=== PATIENT | male | born 1965 | race African-American/Black ===

== ENCOUNTER 2017-02-17 22:57 | Emergency (ER) | payer MEDICARE, MEDICAID ==
[~2017-02-17] VITALS: Ht 188 cm; Wt 109.0 kg
[2017-02-17] MEDS ORDERED: IPRATROPIUM BROMIDE (0.02%) 0.5MG/2.5ML NEB HHN STA (23:22)
[2017-02-17] MEDS ORDERED: PREDNISONE 20MG TABLET PO STA (23:22)
[2017-02-17] MEDS ORDERED: ALBUTEROL (0.083%) 2.5MG/3ML NEB HHN STA (23:22)
[2017-02-18 00:40] VITALS: BP 126/83
== END 2017-02-18 00:52 | disposition home or self-care (01) ==
LOC: ER 22:58
DX: J45.901 Unspecified asthma with (acute) exacerbation (principal); I10 Essential (primary) hypertension
CPT/HCPCS: 71010; 94640; 99283; J7512; J7611

== ENCOUNTER 2017-03-22 18:33 | Emergency (ER) | payer MEDICARE, MEDICAID ==
[~2017-03-22] VITALS: Ht 175.3 cm; Wt 82.0 kg
[2017-03-22 20:10] VITALS: BP 139/92
[2017-03-22 21:16] LABS: BASOPHILS % 0.8 % (0.0-2.0); EOSINOPHILS % 0.8 % (0.0-5.0); HEMATOCRIT. 47.1 % (42.0-52.0); HEMOGLOBIN. 16.1 g/dL (14.0-18.0); LYMPHOCYTES % 17.8 % (20.0-50.0); MEAN CORPUSCULAR HEMOGLOBIN 27.6 pg (28.0-32.0); MEAN CORPUSCULAR VOLUME 80.7 fL (80.0-94.0); MEAN PLATELET VOLUME 11.2 fl (7.4-10.4); MONOCYTES % 5.3 % (2.0-8.0); NEUTROPHILS % 75.3 % (40.0-76.0); PLATELET 139 x1000/uL (130-400); RED BLOOD CELL COUNT 5.84 mill/uL (4.7-6.1); RED CELL DISTRIBUTION WIDTH 14.4 % (11.6-14.6)
[2017-03-22 21:24] LABS: INR 1.1; PROTHROMBIN TIME 11.1 sec
[2017-03-22 21:25] LABS: *AMPHETAMINES SCREEN URINE NEGATIVE (NEGATIVE); *BARBITURATES SCREEN URINE NEGATIVE (NEGATIVE); *BENZODIAZEPINES SCREEN URINE NEGATIVE (NEGATIVE); *COCAINE SCREEN URINE NEGATIVE (NEGATIVE); CANNABINOID URINE SCREEN PRESUMTIVE POSITIVE (NEGATIVE); METHADONE URINE SCREEN NEGATIVE (NEGATIVE); OPIATES URINE SCREEN NEGATIVE (NEGATIVE); PHENCYCLIDINE URINE SCREEN NEGATIVE (NEGATIVE)
== END 2017-03-22 22:30 | disposition home or self-care (01) ==
LOC: ER 18:43
DX: R55 Syncope and collapse (principal); I10 Essential (primary) hypertension; J45.909 Unspecified asthma, uncomplicated
CPT/HCPCS: 36415; 71010; 80305; 85025; 85610; 93005; 99285

== ENCOUNTER 2017-06-17 20:58 | Emergency (ER) | payer MEDICARE, MEDICAID ==
[~2017-06-17] VITALS: Ht 175.3 cm; Wt 82.0 kg
[2017-06-17] MEDS ORDERED: ASPIRIN 81MG TABLET PO STA (22:15)
[2017-06-17] MEDS ORDERED: ALBUTEROL (0.083%) 2.5MG/3ML NEB HHN STA (22:15)
[2017-06-17] MEDS ORDERED: NITROGLYCERIN OINT 1GM/INCH UDPKT TD STA (22:15)
[2017-06-17] MEDS ORDERED: METHYLPREDNISOLONE SOD SUCC 125 MG/2 ML VIAL IV STA (22:15)
[2017-06-17] MEDS ORDERED: IPRATROPIUM BROMIDE (0.02%) 0.5MG/2.5ML NEB HHN STA (22:15)
[2017-06-17] MEDS ORDERED: CLONIDINE 0.2MG TABLET PO ONE (22:15)
[2017-06-17 23:13] LABS: EOSINOPHILS % 3.8 % (0.0-5.0); HEMATOCRIT. 45.9 % (42.0-52.0); HEMOGLOBIN. 15.8 g/dL (14.0-18.0); LYMPHOCYTES % 34.8 % (20.0-50.0); MEAN CORPUSCULAR HEMOGLOBIN 28.1 pg (28.0-32.0); MEAN CORPUSCULAR VOLUME 81.3 fL (80.0-94.0); MEAN PLATELET VOLUME 11.1 fl (7.4-10.4); MONOCYTES % 7.4 % (2.0-8.0); PLATELET 125 x1000/uL (130-400); RED BLOOD CELL COUNT 5.64 mill/uL (4.7-6.1)
[2017-06-17 23:18] LABS: CHLORIDE 108 mEq/L (98-107)
[2017-06-17 23:20] LABS: CARBON DIOXIDE 27 mEq/L (21-32); PARTIAL THROMBOPLASTIN TIME 23.6 sec (23.4-31.0); PROTHROMBIN TIME 10.9 sec (9.4-11.6)
[2017-06-17 23:26] LABS: TROPONIN I 0.25 ng/mL (0.00-0.04)
[2017-06-18 00:10] VITALS: BP 152/93
== END 2017-06-18 08:00 | disposition left against medical advice (07) ==
LOC: ER 20:58 → CANBEDREQ 06-18 04:19 → ER 06-18 07:36
DX: J44.1 Chronic obstructive pulmonary disease with (acute) exacerbation (principal); I10 Essential (primary) hypertension; F17.210 Nicotine dependence, cigarettes, uncomplicated
CPT/HCPCS: 36415; 71010; 80048; 83880; 84484; 85025; 85610; 85730; 93005; 94644; 96374; 99285; J2930; J7611

== ENCOUNTER 2018-01-08 19:31 | Emergency (ER) | payer MEDICARE, MEDICAID | END 2018-01-08 20:00 | disposition left against medical advice (07) | LOC: ER 19:31 | DX: Z53.21 Procedure and treatment not carried out due to patient leaving prior to being seen by health care provider (principal) ==

== ENCOUNTER 2018-09-15 20:22 | Emergency (ER) | payer MEDICARE, MEDICAID ==
[~2018-09-15] VITALS: Ht 175.3 cm; Wt 107.0 kg
[~2018-09-15 20:22] MED LIST: DILT30TA3 PO
[2018-09-15] MEDS ORDERED: METHYLPREDNISOLONE SOD SUCC 125 MG/2 ML VIAL IV STA (21:15)
[2018-09-15] MEDS ORDERED: ALBUTEROL (0.083%) 2.5MG/3ML NEB HHN STA (21:15)
[2018-09-15] MEDS ORDERED: IPRATROPIUM BROMIDE (0.02%) 0.5MG/2.5ML NEB HHN STA (21:15)
[2018-09-15] MEDS ORDERED: MAGNESIUM 2 G PREMIX 50 ML IV ONE (21:15)
[2018-09-15 23:07] LABS: BASOPHILS % 0.4 % (0.0-2.0); EOSINOPHILS % 3.5 % (0.0-5.0); HEMATOCRIT. 42.2 % (42.0-52.0); HEMOGLOBIN. 14.1 g/dL (14.0-18.0); LYMPHOCYTES % 14.3 % (20.0-50.0); MEAN CORPUSCULAR HEMOGLOBIN 27.6 pg (28.0-32.0); MEAN CORPUSCULAR VOLUME 82.4 fL (80.0-94.0); MEAN PLATELET VOLUME 11.7 fl (7.4-10.4); MONOCYTES % 4.4 % (2.0-8.0); NEUTROPHILS % 77.4 % (40.0-76.0); PLATELET 100 x1000/uL (130-400); RED BLOOD CELL COUNT 5.12 mill/uL (4.7-6.1); RED CELL DISTRIBUTION WIDTH 14.5 % (11.6-14.6)
[2018-09-15 23:13] LABS: CHLORIDE 107 mEq/L (98-107)
[2018-09-16 00:13] VITALS: BP 156/95
== END 2018-09-16 00:15 | disposition home or self-care (01) ==
LOC: ER 20:22
DX: J44.1 Chronic obstructive pulmonary disease with (acute) exacerbation (principal); J45.909 Unspecified asthma, uncomplicated; I10 Essential (primary) hypertension; Z87.891 Personal history of nicotine dependence
CPT/HCPCS: 36415; 71045; 80053; 83880; 84484; 85025; 93005; 94640; 96365; 96375; 99284; J2930; J3475; J7611

== ENCOUNTER 2018-11-26 20:28 | Emergency (ER) | payer MEDICARE, MEDICAID ==
[~2018-11-26] VITALS: Ht 175.3 cm; Wt 108.0 kg
[2018-11-26] MEDS ORDERED: IPRATROPIUM BROMIDE (0.02%) 0.5MG/2.5ML NEB HHN STA (22:30)
[2018-11-26] MEDS ORDERED: PREDNISONE 20MG TABLET PO STA (22:30)
[2018-11-26] MEDS ORDERED: ALBUTEROL (0.083%) 2.5MG/3ML NEB HHN STA (22:30)
[2018-11-27] MEDS ORDERED: ALBUTEROL (0.5%) 2.5MG/0.5ML NEB HHN ONE (00:05)
[2018-11-27] MEDS ORDERED: IPRATROPIUM BROMIDE (0.02%) 0.5MG/2.5ML NEB ONE (00:05)
[2018-11-27 01:02] VITALS: BP 156/86
== END 2018-11-27 01:08 | disposition home or self-care (01) ==
LOC: ER 20:28
DX: J44.1 Chronic obstructive pulmonary disease with (acute) exacerbation (principal); I10 Essential (primary) hypertension; Z87.828 Personal history of other (healed) physical injury and trauma; Z87.891 Personal history of nicotine dependence; Z98.890 Other specified postprocedural states
CPT/HCPCS: 71045; 94644; 99285; J7512; J7611

== ENCOUNTER 2020-12-08 07:36 | Inpatient (IN) | payer MEDICARE, MEDICAID ==
[~2020-12-08] VITALS: Ht 188 cm; Wt 112.7 kg
[2020-12-08] MEDS ORDERED: MAGNESIUM 2 G PREMIX 50 ML IV STA (07:42)
[2020-12-08] MEDS ORDERED: ALBUTEROL (0.083%) 2.5MG/3ML NEB HHN STA (07:42)
[2020-12-08] MEDS ORDERED: IPRATROPIUM BROMIDE (0.02%) 0.5MG/2.5ML NEB HHN STA (07:42)
[2020-12-08] MEDS ORDERED: METHYLPREDNISOLONE SOD SUCC 125 MG/2 ML VIAL IV STA (07:42)
[2020-12-08 08:00] VITALS: BP 148/90
[2020-12-08 08:10] LABS: BASOPHILS % 0.9 % (0.0-2.0); EOSINOPHILS % 3.3 % (0.0-5.0); HEMOGLOBIN. 16.2 g/dL (14.0-18.0); LYMPHOCYTES % 50.6 % (20.0-50.0); MEAN CORPUSCULAR HEMOGLOBIN 27.5 pg (28.0-32.0); MEAN CORPUSCULAR VOLUME 85.2 fL (80.0-94.0); MEAN PLATELET VOLUME 12.2 fl (7.4-10.4); MONOCYTES % 8.9 % (2.0-8.0); NEUTROPHILS % 36.3 % (40.0-76.0); PLATELET 141 x1000/uL (130-400); RED BLOOD CELL COUNT 5.87 mill/uL (4.7-6.1); RED CELL DISTRIBUTION WIDTH 15.6 % (11.6-14.6)
[2020-12-08 08:19] LABS: CHLORIDE 109 mEq/L (98-107)
[2020-12-08] MEDS ORDERED: DILTIAZEM HCL 30MG TABLET PO ONE ×2 (10:00)
[2020-12-08] MEDS ORDERED: DILTIAZEM HCL 5MG/ML 5ML VIAL IV SCH (11:15)
[2020-12-08] MEDS ORDERED: HYDRALAZINE 20MG/ML VIAL IV PRN ×2 (11:15→12:30)
[2020-12-08] MEDS ORDERED: POTASSIUM CHLORIDE 20MEQ/PACKET PO SCH (11:15)
[2020-12-08 12:00] VITALS: BP 145/93
[2020-12-08] MEDS: ASPIRIN 81MG EC TABLET PO SCH (12:25)
[2020-12-08] MEDS: DILTIAZEM HCL 60MG TABLET PO SCH ×2 (12:25→21:26)
[2020-12-08] MEDS ORDERED: HYDROCODONE/ACETAMINOPHEN 5/325MG TABLET PO PRN (12:30)
[2020-12-08] MEDS ORDERED: LORAZEPAM 2MG/ML CPJ IV PRN (12:30)
[2020-12-08] MEDS ORDERED: MAGNESIUM/ALUMINUM HYDROXIDE/SIMETHICONE 30ML UDC PO PRN (12:30)
[2020-12-08] MEDS ORDERED: ACETAMINOPHEN 325MG TABLET PO PRN (12:30)
[2020-12-08] MEDS ORDERED: DOCUSATE SODIUM 100MG CAPSULE PO PRN (12:30)
[2020-12-08] MEDS ORDERED: GUAIFENESIN 200MG/10ML SUGAR FREE UDC PO PRN (12:30)
[2020-12-08] MEDS ORDERED: DIPHENHYDRAMINE 50MG/ML VIAL IV PRN (12:30)
[2020-12-08] MEDS ORDERED: ONDANSETRON HCL 4MG/2ML INJ IV PRN (12:30)
[2020-12-08] MEDS ORDERED: MORPHINE SULFATE 2 MG/ML CPJ (NOT FOR IM USE) IV PRN (12:30)
[2020-12-08] MEDS ORDERED: IPRATROPIUM/ALBUTEROL 0.5-3(2.5)MG/3ML NEB HHN PRN (12:30)
[2020-12-08] MEDS ORDERED: CLONIDINE 0.1MG TABLET PO PRN (12:30)
[2020-12-08 12:45] VITALS: BP 148/92
[2020-12-08] MEDS: ENOXAPARIN 30MG/0.3ML SYR SUBCUT SCH (13:16)
[2020-12-08] MEDS: SODIUM CHLORIDE 0.9% INJ 3ML FLUSH IVF SCH ×2 (13:16→21:27)
[2020-12-08 16:00] VITALS: BP 160/85
[2020-12-08 17:03] LABS: CREATINE KINASE MB FRACTION 5.1 ng/mL (0.5-3.6)
[2020-12-08 20:00] VITALS: BP 140/79
[2020-12-08] MEDS ORDERED: ATORVASTATIN CALCIUM 20MG TABLET PO SCH (21:00)
[2020-12-08] MEDS ORDERED: ALBU18HF2 IH (21:04)
[2020-12-08] MEDS ORDERED: P20 PO (21:04)
[2020-12-08] MEDS ORDERED: ASPI-1497 PO (21:04)
[2020-12-08] MEDS ORDERED: DILT30TA38 PO (21:05)
[2020-12-08 21:35] LABS: *AMPHETAMINES SCREEN URINE NEGATIVE (NEGATIVE); *BARBITURATES SCREEN URINE NEGATIVE (NEGATIVE); *BENZODIAZEPINES SCREEN URINE NEGATIVE (NEGATIVE); *COCAINE SCREEN URINE NEGATIVE (NEGATIVE); METHADONE URINE SCREEN NEGATIVE (NEGATIVE); OPIATES URINE SCREEN NEGATIVE (NEGATIVE)
[2020-12-08 21:36] LABS: CANNABINOID URINE SCREEN NEGATIVE (NEGATIVE); PHENCYCLIDINE URINE SCREEN NEGATIVE (NEGATIVE)
[2020-12-09 00:02] VITALS: BP 155/77
[2020-12-09] MEDS: ENOXAPARIN 30MG/0.3ML SYR SUBCUT SCH ×2 (00:02→13:00)
[2020-12-09 00:34] LABS: CREATINE KINASE MB FRACTION 6.3 ng/mL (0.5-3.6)
[2020-12-09 04:00] VITALS: BP 145/81
[2020-12-09] MEDS: SODIUM CHLORIDE 0.9% INJ 3ML FLUSH IVF SCH ×2 (06:30→13:21)
[2020-12-09] MEDS: DILTIAZEM HCL 60MG TABLET PO SCH (06:30)
[2020-12-09 06:37] LABS: BASOPHILS % 0.2 % (0.0-2.0); HEMATOCRIT. 43.8 % (42.0-52.0); HEMOGLOBIN. 14.3 g/dL (14.0-18.0); MEAN CORPUSCULAR HEMOGLOBIN 27.4 pg (28.0-32.0); MEAN PLATELET VOLUME 12.3 fl (7.4-10.4); MONOCYTES % 6.6 % (2.0-8.0); NEUTROPHILS % 83.2 % (40.0-76.0); PLATELET 117 x1000/uL (130-400); RED BLOOD CELL COUNT 5.22 mill/uL (4.7-6.1)
[2020-12-09 06:58] LABS: CHLORIDE 106 mEq/L (98-107)
[2020-12-09 07:10] LABS: LDL CHOLESTEROL 154 mg/dL (5-100)
[2020-12-09 07:11] LABS: HDL CHOLESTEROL 51 mg/dL (40-59)
[2020-12-09 08:51] VITALS: BP 165/89
[2020-12-09] MEDS: ASPIRIN 81MG EC TABLET PO SCH (09:12)
[2020-12-09] MEDS ORDERED: LOSARTAN POTASSIUM 25 MG TABLET PO SCH (09:30)
[2020-12-09 10:13] LABS: T4 FREE 0.99 ng/dL (0.76-1.46)
[2020-12-09 12:00] VITALS: BP 146/90
[2020-12-09] MEDS ORDERED: DILTIAZEM HCL 60MG TABLET PO SCH (12:00)
[2020-12-09] MEDS ORDERED: IPRATROPIUM/ALBUTEROL 0.5-3(2.5)MG/3ML NEB HHN SCH (14:00)
[2020-12-09 16:00] VITALS: BP 161/101
[2020-12-09 17:34] VITALS: BP 161/101
[2020-12-09] MEDS ORDERED: ATORVASTATIN CALCIUM 40MG TABLET PO SCH (21:00)
== END 2020-12-09 19:00 | disposition home or self-care (01) | DRG 189 ==
LOC: ER 07:36 → EDBEDREQTM 09:42 → EDBEDREQ 09:42 → ENRESERV 09:51 → 6WST 10:29
PROVIDERS: ADMIT Internal Medicine; ATTEND Internal Medicine
PROC: 5A09357 Assistance with Respiratory Ventilation, Less than 24 Consecutive Hours, Continuous Positive Airway Pressure (ICD-10-PCS; principal; 2020-12-08)
DX: J96.00 Acute respiratory failure, unspecified whether with hypoxia or hypercapnia (principal); J44.1 Chronic obstructive pulmonary disease with (acute) exacerbation; I50.22 Chronic systolic (congestive) heart failure; J45.909 Unspecified asthma, uncomplicated; E66.9 Obesity, unspecified; I11.0 Hypertensive heart disease with heart failure; E78.5 Hyperlipidemia, unspecified; Z20.822 Contact with and (suspected) exposure to COVID-19; Z79.82 Long term (current) use of aspirin; Z79.899 Other long term (current) drug therapy; Z68.31 Body mass index [BMI] 31.0-31.9, adult; Z87.891 Personal history of nicotine dependence
CPT/HCPCS: 36415; 71045; 80048; 80053; 80061; 80305; 82550; 82553; 83735; 83880; 84439; 84443; 84481; 84484; 85025; 87426; 93005; 93306; 94660; 96365; 99291; J1650; J2930; J3475